=== PATIENT | male | born 1985 | race Caucasian/White ===

== ENCOUNTER 2019-05-10 01:14 | Emergency (ER) | payer SELFPAY ==
--- NOTE | 2019-05-10 01:48 | ER ---
Nurse's Notes [facility] Name: Meng Rdz Age: 33 yrs Sex: Male : 1985 Arrival Date: 05/10/2019 Time: 01:16 Bed 13 Private MD: Diagnosis: Other bursitis of elbow, right elbow Presentation: 05/10 01:25 Presenting complaint: Patient states: i got abrasion wound from my work 2 weeks ago. i rr5 did not mine it. Today I notice it is swollen,red, getting big and causing pain pain score 8/10. 01:25 Transition of care: patient was not received from another setting of care. Onset of rr5 symptoms was April 2019. Risk Assessment: Do you want to hurt yourself or someone else? Patient reports no desire to harm self or others. Initial Sepsis Screen: Does the patient meet any 2 criteria? No. Patient's initial sepsis screen is negative. Does the patient have a suspected source of infection? No. Patient's initial sepsis screen is negative. Care prior to arrival: None. 01:25 Method Of Arrival: Ambulatory rr5 01:25 Acuity: BENY 3 rr5 Historical: - Allergies: 01:20 No Known Allergies; rr5 - Home Meds: 01:20 None [Active]; rr5 - PMHx: 01:20 None; rr5 - PSHx: 01:20 None; rr5 - Immunization history:: Adult Immunizations up to date, Last tetanus immunization: unknown. - Social history:: Smoking status: Patient uses tobacco products, smokes one pack cigarettes per day. Patient uses alcohol, occasionally. Patient/guardian denies using street drugs. - Ebola Screening: : Patient negative for fever greater than or equal to 101.5 degrees Fahrenheit, and additional compatible Ebola Virus Disease symptoms Patient denies exposure to infectious person Patient denies travel to an Ebola-affected area in the 21 days before illness onset. Screenin:31 Abuse screen: Denies threats or abuse. Denies injuries from another. Nutritional rr5 screening: No deficits noted. Tuberculosis screening: No symptoms or risk factors identified. Fall Risk None identified. Total Valenzuela Fall Scale indicates No Risk (0-24 pts). Assessment: 01:20 General: Appears in no apparent distress. comfortable, Behavior is calm, cooperative, rr5 appropriate for age. Pain: Complains of pain in right elbow Pain does not radiate. Pain currently is 8 out of 10 on a pain scale. Quality of pain is described as aching, Pain began gradually, Is intermittent. Neuro: Level of Consciousness is awake, alert, obeys commands, Oriented to person, place, time, situation. Cardiovascular: Capillary refill < 3 seconds Patient's skin is warm and dry. Respiratory: Airway is patent Respiratory effort is even, unlabored, Respiratory pattern is regular, symmetrical. GI: No signs and/or symptoms were reported involving the gastrointestinal system. : No signs and/or symptoms were reported regarding the genitourinary system. EENT: No signs and/or symptoms were reported regarding the EENT system. Derm: Wound noted right elbow Wound is abrasions,swelling, redness and warm to touch. 01:20 Musculoskeletal: Swelling present in right elbow. rr5 02:02 Reassessment: Patient appears in no apparent distress at this time. Patient is alert, rr5 oriented x 3, equal unlabored respirations, skin warm/dry/pink. discharge instruction given and explained without complaints made. Vital Signs: 01:20 BP 142 / 103; Pulse 98; Resp 17; Temp 99.1; Pulse Ox 98% ; Weight 81.65 kg; Height 5 rr5 ft. 7 in. (170.18 cm); Pain 8/10; 02:02 BP 130 / 75; Pulse 90; Resp 16; Pulse Ox 98% ; rr5 01:20 Body Mass Index 28.19 (81.65 kg, 170.18 cm) rr5 ED Course: 01:16 Patient arrived in ED. ds1 01:20 Patient has correct armband on for positive identification. Call light in reach. Side rr5 rails up X2. 01:24 Armando Rendon PA is PHCP. jr8 01:24 Rambo Patricia MD is Attending Physician. jr8 01:27 Cornell Wren RN is Primary Nurse. rr5 01:30 Triage completed. rr5 01:31 Arm band placed on left wrist. rr5 01:55 Myles wrap to right elbow. rr5 01:55 No provider procedures requiring assistance completed. rr5 02:01 Patient did not have IV access during this emergency room visit. rr5 Administered Medications: 01:50 Drug: Bactrim (160 mg-800 mg (DS) 1 tablet Route: PO; rr5 02:03 Follow up: Response: Medication administered at discharge. rr5 Outcome: 01:47 Discharge ordered by . concepción 02:01 Discharged to home ambulatory. rr5 02:01 Condition: stable 02:01 Discharge instructions given to patient, Instructed on discharge instructions, follow up and referral plans. medication usage, Demonstrated understanding of instructions, follow-up care, medications, Prescriptions given X 2. 02:04 Patient left the ED. rr5 Signatures: Maribell Kelly ds1 Armando Rendon PA PA jr8 Cornell Wren, RN RN rr5
--- NOTE | 2019-05-10 01:49 | EDPHYS ---
Physician Documentation [facility] Name: Meng Rdz Age: 33 yrs Sex: Male : 1985 Arrival Date: 05/10/2019 Time: 01:16 Bed 13 Private MD: ED Physician Rambo Patricia HPI: 05/10 01:50 This 33 yrs old Male presents to ER via Ambulatory with complaints of Elbow jr8 Pain/ Swelling. 01:50 Onset: The symptoms/episode began/occurred today. Pt reports onset of redness and jr8 swelling to right elbow of the course of the last 4-5 hours. Reports the need to crawl on knees and elbows at work. . Historical: - Allergies: 01:20 No Known Allergies; rr5 - Home Meds: 01:20 None [Active]; rr5 - PMHx: 01:20 None; rr5 - PSHx: 01:20 None; rr5 - Immunization history:: Adult Immunizations up to date, Last tetanus immunization: unknown. - Social history:: Smoking status: Patient uses tobacco products, smokes one pack cigarettes per day. Patient uses alcohol, occasionally. Patient/guardian denies using street drugs. - Ebola Screening: : Patient negative for fever greater than or equal to 101.5 degrees Fahrenheit, and additional compatible Ebola Virus Disease symptoms Patient denies exposure to infectious person Patient denies travel to an Ebola-affected area in the 21 days before illness onset. ROS: 01:50 Constitutional: Negative for fever, chills, and weight loss, Eyes: Negative for injury, jr8 pain, redness, and discharge, ENT: Negative for injury, pain, and discharge, Neck: Negative for injury, pain, and swelling, Cardiovascular: Negative for chest pain, palpitations, and edema, Respiratory: Negative for shortness of breath, cough, wheezing, and pleuritic chest pain, Abdomen/GI: Negative for abdominal pain, nausea, vomiting, diarrhea, and constipation, Back: Negative for injury and pain, Neuro: Negative for headache, weakness, numbness, tingling, and seizure. 01:50 MS/extremity: Positive for erythema, pain, warmth, of the right elbow. Exam: 01:52 Constitutional: This is a well developed, well nourished patient who is awake, alert, jr8 and in no acute distress. Head/Face: Normocephalic, atraumatic. Eyes: Pupils equal round and reactive to light, extra-ocular motions intact. Lids and lashes normal. Conjunctiva and sclera are non-icteric and not injected. Cornea within normal limits. Periorbital areas with no swelling, redness, or edema. Neck: Trachea midline, no thyromegaly or masses palpated, and no cervical lymphadenopathy. Supple, full range of motion without nuchal rigidity, or vertebral point tenderness. No Meningismus. Chest/axilla: Normal chest wall appearance and motion. Nontender with no deformity. No lesions are appreciated. Cardiovascular: Regular rate and rhythm with a normal S1 and S2. No gallops, murmurs, or rubs. Normal PMI, no JVD. No pulse deficits. Respiratory: Lungs have equal breath sounds bilaterally, clear to auscultation and percussion. No rales, rhonchi or wheezes noted. No increased work of breathing, no retractions or nasal flaring. Abdomen/GI: Soft, non-tender, with normal bowel sounds. No distension or tympany. No guarding or rebound. No evidence of tenderness throughout. Back: No spinal tenderness. No costovertebral tenderness. Full range of motion. Neuro: Awake and alert, GCS 15, oriented to person, place, time, and situation. Cranial nerves II-XII grossly intact. Motor strength 5/5 in all extremities. Sensory grossly intact. Cerebellar exam normal. Normal gait. 01:52 Musculoskeletal/extremity: Joints: All joints appear normal with full range of motion. erythema and swelling over olecranon process of right elbow. Vital Signs: 01:20 BP 142 / 103; Pulse 98; Resp 17; Temp 99.1; Pulse Ox 98% ; Weight 81.65 kg; Height 5 rr5 ft. 7 in. (170.18 cm); Pain 8/10; 02:02 BP 130 / 75; Pulse 90; Resp 16; Pulse Ox 98% ; rr5 01:20 Body Mass Index 28.19 (81.65 kg, 170.18 cm) rr5 MDM: 01:24 Patient medically screened. jr8 01:45 Data reviewed: vital signs, nurses notes, and as a result, I will discharge patient. jr8 Data interpreted: Pulse oximetry: on room air is 98 %. Interpretation: normal. Counseling: I had a detailed discussion with the patient and/or guardian regarding: the historical points, exam findings, and any diagnostic results supporting the discharge/admit diagnosis. ED course: Discussed dx of bursitis and overlying redness, need for abx, need to rest elbow for a few days. 05/10 01:50 Order name: Myles Wrap; Complete Time: 02:00 jr8 Administered Medications: 01:50 Drug: Bactrim (160 mg-800 mg (DS) 1 tablet Route: PO; rr5 02:03 Follow up: Response: Medication administered at discharge. rr5 Disposition: 02:29 Co-signature as Attending Physician, Rambo Patricia MD. rn Disposition: 05/10/19 01:47 Discharged to Home. Impression: Other bursitis of elbow, right elbow. - Condition is Stable. - Discharge Instructions: Bursitis, Repetitive Strain Injuries. - Prescriptions for Naprosyn 500 mg Oral Tablet - take 1 tablet by ORAL route 2 times per day take with food; 30 tablet. Bactrim DS 800- 160 mg Oral Tablet - take 1 tablet by ORAL route every 12 hours for 7 days; 14 tablet. - Work release form, Medication Reconciliation Form, Thank You Letter, Prescription Opioid Use form. - Follow up: Private Physician; When: As needed; Reason: Recheck today's complaints, Continuance of care. - Problem is new. - Symptoms are unchanged. Signatures: Rambo Patricia MD MD rn Roszak, Josh, PA PA jr8 Cornell Wren RN RN rr5 Corrections: (The following items were deleted from the chart) 02:04 01:47 05/10/2019 01:47 Discharged to Home. Impression: Other bursitis of elbow, right rr5 elbow. Condition is Stable. Forms are Medication Reconciliation Form, Thank You Letter, Antibiotic Education, Prescription Opioid Use. Follow up: Private Physician; When: As needed; Reason: Recheck today's complaints, Continuance of care. Problem is new. Symptoms are unchanged. jr8
[2019-05-10] MEDS ORDERED: SMZ./TMP. 800/160 MG TABLET ONE (01:54)
[2019-05-10 02:43] VITALS: TEMP 99.1; O2SAT 98
[2019-05-10 02:44] VITALS: BP 130/75
== END 2019-05-10 02:04 | disposition home or self-care (01) ==
LOC: ER 01:14
DX: M70.31 Other bursitis of elbow, right elbow (principal); F17.210 Nicotine dependence, cigarettes, uncomplicated
CPT/HCPCS: 99283

== ENCOUNTER 2019-07-28 01:47 | Emergency (ER) | payer SELFPAY ==
[2019-07-28] MEDS ORDERED: HYDROCODONE/APAP 7.5/325 MG TAB ONE (02:02)
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
--- NOTE | 2019-07-28 08:21 | RAD REPORT ---
EXAM DESCRIPTION: RAD - Ankle Left 3 View - 07/28/2019 2:11 am CLINICAL HISTORY: PAIN COMPARISON: No comparisons FINDINGS: Oblique fracture involves the distal fibula with moderate adjacent soft tissue swelling. N o dislocation is seen. Tiny posterior calcaneal spur.
[2019-07-28 10:21] VITALS: TEMP 98
[2019-07-28 10:23] VITALS: BP 123/92; O2SAT 98
== END 2019-07-28 03:34 | disposition home or self-care (01) ==
LOC: ER 01:47
PROC: 2W3RX1Z Immobilization of Left Lower Leg using Splint (ICD-10-PCS; principal; 2019-07-28)
DX: S82.435A Nondisplaced oblique fracture of shaft of left fibula, initial encounter for closed fracture (principal); W20.8XXA Other cause of strike by thrown, projected or falling object, initial encounter; Y93.9 Activity, unspecified; Y92.9 Unspecified place or not applicable; F17.210 Nicotine dependence, cigarettes, uncomplicated
CPT/HCPCS: 99284

== ENCOUNTER 2019-11-25 03:26 | Emergency (ER) | payer SELFPAY ==
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
[2019-11-25 04:24] VITALS: BP 130/89; TEMP 98; O2SAT 100
== END 2019-11-25 04:18 | disposition home or self-care (01) ==
LOC: ER 03:26
DX: L03.818 Cellulitis of other sites (principal); L03.124 Acute lymphangitis of left upper limb; L03.123 Acute lymphangitis of right upper limb
CPT/HCPCS: 99283

== ENCOUNTER 2022-06-01 00:33 | Emergency (ER) | payer SELFPAY ==
[2022-06-01] MEDS ORDERED: DIAZEPAM 5 MG TABLET ONE (01:29)
[2022-06-01] MEDS ORDERED: HYDROCODONE/APAP 5/325 MG TAB ONE (01:30)
--- NOTE | 2022-06-01 03:42 | ER ---
Nurse's Notes [facility] Name: Meng Rdz Age: 36 yrs Sex: Male : 1985 Arrival Date: 06/01/2022 Time: 00:37 Bed 3 Private MD: Diagnosis: Pain in right shoulder;Muscle spasm Presentation: 06/01 00:58 Chief complaint: Patient states: c/o right shoulder cramping since yesterday. bb Coronavirus screen: At this time, the client does not indicate any symptoms associated with coronavirus-19. Ebola Screen: No symptoms or risks identified at this time. Initial Sepsis Screen: Does the patient meet any 2 criteria? No. Patient's initial sepsis screen is negative. Does the patient have a suspected source of infection? No. Patient's initial sepsis screen is negative. Risk Assessment: Do you want to hurt yourself or someone else? Patient reports no desire to harm self or others. Onset of symptoms was May 31, 2022. 00:58 Method Of Arrival: Ambulatory bb 00:58 Acuity: BENY 5 bb Historical: - Allergies: 00:59 No Known Allergies; bb Screenin:10 Abuse screen: Denies threats or abuse. Nutritional screening: No deficits noted. jb4 Tuberculosis screening: No symptoms or risk factors identified. Fall Risk None identified. Assessment: 01:10 General: Appears in no apparent distress. uncomfortable, Behavior is calm, cooperative, jb4 appropriate for age. Pain: Complains of pain in Right shoulder Pain radiates to right hand Pain currently is 6 out of 10 on a pain scale. at worst was 10 out of 10 on a pain scale. Quality of pain is described as tingling, numb. Neuro: Level of Consciousness is awake, alert, obeys commands, Oriented to person, place, time, situation. Cardiovascular: Patient's skin is warm and dry. Respiratory: Airway is patent Respiratory effort is even, unlabored, Respiratory pattern is regular, symmetrical. GI: : No signs and/or symptoms were reported regarding the genitourinary system. EENT: No signs and/or symptoms were reported regarding the EENT system. Derm: Skin is intact, Skin is pink, warm \T\ dry. Musculoskeletal: Circulation, motion, and sensation intact. Range of motion: intact in all extremities. 02:43 Reassessment: Pt is resting in bed with eyes closed, respirations are even and jb4 unlabored, no s/s of pain or distress noted. 04:00 Reassessment: Patient appears in no apparent distress at this time. Patient and/or jb4 family updated on plan of care and expected duration. Pain level reassessed. Patient is alert, oriented x 3, equal unlabored respirations, skin warm/dry/pink. Vital Signs: 01:22 BP 155 / 109; Pulse 57; Resp 18 S; Temp 97.9(O); Pulse Ox 99% on R/A; Weight 81.65 kg bb (R); Height 5 ft. 7 in. (170.18 cm) (R); Pain 10/10; 02:43 BP 119 / 86; Pulse 72; Resp 16; Pulse Ox 98% on R/A; jb4 03:45 BP 116 / 73; Pulse 65; Resp 16; Pulse Ox 99% on R/A; jb4 01:22 Body Mass Index 28.19 (81.65 kg, 170.18 cm) bb ED Course: 00:37 Patient arrived in ED. bp1 00:37 Terence Felix DO is Attending Physician. ms3 00:59 Triage completed. bb 00:59 Arm band placed on Patient placed in waiting room, Patient notified of wait time. bb 01:10 Patient has correct armband on for positive identification. Bed in low position. Call jb4 light in reach. Side rails up X 1. Client placed on continuous cardiac and pulse oximetry monitoring. NIBP monitoring applied. 01:16 Arthur Caldwell, BIANKA is Primary Nurse. jb4 02:32 Shoulder Right (2 View) XRAY In Process Unspecified. EDMS 03:40 Rober Agarwal MD is Referral Physician. ms3 04:00 No provider procedures requiring assistance completed. Patient did not have IV access jb4 during this emergency room visit. Administered Medications: 01:35 Drug: HYDROcodone-acetaminophen 5 mg-325 mg 1 tabs Route: PO; jb4 02:00 Follow up: Response: No adverse reaction; Marked relief of symptoms jb4 01:35 Drug: Valium (diazepam) 5 mg Route: PO; jb4 02:00 Follow up: Response: No adverse reaction; Marked relief of symptoms jb4 Medication: 03:45 VIS not applicable for this client. jb4 Outcome: 03:42 Discharge ordered by . ms3 04:00 Discharged to home ambulatory. jb4 04:00 Condition: stable 04:00 Discharge instructions given to patient, family, Instructed on discharge instructions, follow up and referral plans. medication usage, Demonstrated understanding of instructions, follow-up care, medications, Prescriptions given X 2. 04:10 Patient left the ED. bb Signatures: Dispatcher [employer] EDMS Hemalatha Koch RN RN bb Arthur Caldwell RN RN jb4 Terence Felix DO DO ms3 [facility]
--- NOTE | 2022-06-01 03:42 | EDPHYS ---
Physician Documentation [facility] Name: Meng Rdz Age: 36 yrs Sex: Male : 1985 Arrival Date: 06/01/2022 Time: 00:37 Bed 3 Private MD: ED Physician Terence Felix HPI: 06/01 03:43 This 36 yrs old Male presents to ER via Ambulatory with complaints of Shoulder Pain, ms3 Back Pain. 03:43 36-year-old male with no past medical history presents for right shoulder pain/cramping ms3 that began yesterday. Patient states pain is 10/10 cramping located in the right posterior shoulder. Patient states he took a hot shower that helped while he was in the shower. Patient denies inciting factors. Patient denies fevers, chills, nausea, vomiting, chest pain. Historical: - Allergies: 00:59 No Known Allergies; bb ROS: 03:43 Constitutional: Negative for fever, and chills. Neck: Negative for injury, pain, and ms3 swelling, Cardiovascular: Negative for chest pain, and palpitations. Respiratory: Negative for shortness of breath, cough, wheezing, and pleuritic chest pain, Abdomen/GI: Negative for abdominal pain, nausea, vomiting, diarrhea, and constipation. 03:43 MS/extremity: Positive for right shoulder pain. 03:43 All other systems are negative. Exam: 03:43 Constitutional: This is a well developed, well nourished patient who is awake, alert, ms3 and in no acute distress. Head/Face: Normocephalic, atraumatic. Neck: Trachea midline, no cervical lymphadenopathy. Supple, full range of motion without nuchal rigidity, or vertebral point tenderness. No Meningismus. Chest/axilla: Normal chest wall appearance and motion. Nontender with no deformity. Cardiovascular: Regular rate and rhythm with a normal S1 and S2. No gallops, murmurs, or rubs. Normal PMI, no JVD. No pulse deficits. Respiratory: Lungs have equal breath sounds bilaterally, clear to auscultation and percussion. No rales, rhonchi or wheezes noted. No increased work of breathing, no retractions or nasal flaring. Abdomen/GI: Soft, non-tender, with normal bowel sounds. No distension or tympany. No guarding or rebound. No evidence of tenderness throughout. Skin: Warm, dry with normal turgor. Normal color with no rashes, no lesions, and no evidence of cellulitis. 03:43 Musculoskeletal/extremity: Extremities: noted in the right shoulder: pain, tenderness. Vital Signs: 01:22 BP 155 / 109; Pulse 57; Resp 18 S; Temp 97.9(O); Pulse Ox 99% on R/A; Weight 81.65 kg bb (R); Height 5 ft. 7 in. (170.18 cm) (R); Pain 10/10; 02:43 BP 119 / 86; Pulse 72; Resp 16; Pulse Ox 98% on R/A; jb4 03:45 BP 116 / 73; Pulse 65; Resp 16; Pulse Ox 99% on R/A; jb4 01:22 Body Mass Index 28.19 (81.65 kg, 170.18 cm) bb MDM: 00:58 Patient medically screened. ms3 04:03 Data reviewed: vital signs, nurses notes, and as a result, I will discharge patient. ms3 Counseling: I had a detailed discussion with the patient and/or guardian regarding: the historical points, exam findings, and any diagnostic results supporting the discharge/admit diagnosis, radiology results, the need for outpatient follow up, to return to the emergency department if symptoms worsen or persist or if there are any questions or concerns that arise at home. ED course: Patient's pain improved after [place] and Valium. Patient follow-up Dr. Agarwal in 2 to 3 days. Patient understands agrees with plan. All questions were answered. Return precautions discussed include worsening symptoms, or any other concerns.. 06/01 02:12 Order name: Shoulder Right (2 View) XRAY jb4 Administered Medications: 01:35 Drug: HYDROcodone-acetaminophen 5 mg-325 mg 1 tabs Route: PO; jb4 02:00 Follow up: Response: No adverse reaction; Marked relief of symptoms jb4 01:35 Drug: Valium (diazepam) 5 mg Route: PO; jb4 02:00 Follow up: Response: No adverse reaction; Marked relief of symptoms jb4 Disposition Summary: 06/01/22 03:42 Discharge Ordered Location: Home ms3 Condition: Stable ms3 Diagnosis - Pain in right shoulder ms3 - Muscle spasm ms3 Followup: ms3 - With: Rober Agarwal MD - When: 2 - 3 days - Reason: Recheck today's complaints Discharge Instructions: - Discharge Summary Sheet ms3 - Shoulder Pain ms3 - Shoulder Pain, [id number] ms3 Forms: - Medication Reconciliation Form ms3 - Thank You Letter ms3 - Antibiotic Education ms3 - Prescription Opioid Use ms3 Prescriptions: - Ibuprofen 600 mg Oral Tablet - take 1 tablet by ORAL route every 6 hours As needed take with food; 30 tablet; ms3 Refills: 0, Product Selection Permitted - Cyclobenzaprine 10 mg Oral Tablet - take 1 tablet by ORAL route every 8 hours As needed; 30 tablet; Refills: 0, ms3 Product Selection Permitted Signatures: Dispatcher [employer] Hemalatha Osborne RN RN Arthur Kennedy RN RN jb4 Terence Felix, DO ms3
[2022-06-01 04:24] VITALS: BP 119/86; O2SAT 98
[2022-06-01 04:25] VITALS: TEMP 97.9
--- NOTE | 2022-06-02 10:51 | RAD REPORT ---
EXAM DESCRIPTION: RAD - Shoulder Right 2 View - 06/01/2022 2:30 am CLINICAL HISTORY: 36 years, Male, pain COMPARISON: None. FINDINGS: 2 X-ray views of the right shoulder (internal rotation and external rotation views) were p erformed. There is no evidence for fracture or dislocation. No gross articular or soft tissue abnormality is identified. There are no gross intraosseous lesions. The AC joint demonstrate minimal spur formatio ns. There is no evidence for separation. IMPRESSION: No acute osseous abnormality. Electronically signed by: Owen Bradford MD 06/01/2022 3:03 AM CDT Due to temporary technical issues with the PACS/Fluency reporting system, reports are being signed by the in house radiologists without review as a courtesy to insure prompt reporting. The interpreting radiologist is fully responsible for the content of the report.
== END 2022-06-01 04:10 | disposition home or self-care (01) ==
LOC: ER 00:33
DX: M25.511 Pain in right shoulder (principal); M62.838 Other muscle spasm
CPT/HCPCS: 99283

== ENCOUNTER 2022-12-31 18:22 | Emergency (ER) | payer SELFPAY ==
[2022-12-31] MEDS ORDERED: HYDROCODONE/APAP 7.5/325 MG TAB ONE (19:32)
[2022-12-31] MEDS ORDERED: LIDOCAINE 1% MPF 5 ML VIAL ONE (19:33)
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
[2022-12-31] MEDS ORDERED: BUPIVACAINE 0.5% PF 10 ML VIAL ONE (20:15)
[2022-12-31] MEDS ORDERED: LIDOCAINE 1% 20 ML MDV ONE (20:24)
[2022-12-31] MEDS ORDERED: LIDOCAINE 2% INJ, 20 mL 0 ML ONE (20:24)
[2022-12-31] MEDS ORDERED: LIDOCAINE HCL/EPINEPHRINE 20 ML MDV ONE (20:34)
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
[2022-12-31 22:47] VITALS: BP 128/91; TEMP 98.5; O2SAT 99
== END 2022-12-31 21:54 | disposition home or self-care (01) ==
LOC: ER 18:22
DX: S61.412A Laceration without foreign body of left hand, initial encounter (principal); S61.512A Laceration without foreign body of left wrist, initial encounter; S67.42XA Crushing injury of left wrist and hand, initial encounter
CPT/HCPCS: J2001

== ENCOUNTER 2023-05-01 08:44 | Emergency (ER) | payer SELFPAY ==
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
--- NOTE | 2023-05-01 09:53 | RAD REPORT ---
EXAM DESCRIPTION: CT - Hand Right Wo Con - 05/01/2023 9:10 am CLINICAL HISTORY: abscess, swelling COMPARISON: No comparisons TECHNIQUE: Thin cut axial CT imaging of the right hand was performed without IV contrast. Multiplana r reformats were generated and reviewed. All CT scans are performed using dose optimization technique as appropriate and may include automated exposure control or mA/KV adjustment according to patient size. FINDINGS: No acute fracture or dislocation. Joint alignment is maintained. No significant degenerative changes or erosions. Soft tissue swelling with a small laceration along the dorsal aspect of the third digit head of the p roximal phalanx. Soft tissue swelling extends to the level of the extensor tendons, without evidence of a discrete collection, within limits of noncontrast evaluation. Joint space does not appear to be significantly distended. No other joint effusions. Major tendinous and neurovascular structures are unremarkable. IMPRESSION: Soft tissue swelling and small laceration with superficial gas along the dorsal aspect o f the third digit head of the proximal phalanx. Soft tissue swelling extends to the level of the exte nsor tendons, without evidence of a discrete collection within limits of noncontrast evaluation. No underlying erosion or other suspicious osseous abnormality.
--- NOTE | 2023-05-01 09:56 | RAD REPORT ---
EXAM DESCRIPTION: RAD - Hand Right 3 View - 05/01/2023 9:49 am CLINICAL HISTORY: PAIN COMPARISON: No comparisons TECHNIQUE: Right hand, 3 views. FINDINGS: No fracture is identified. There is no dislocation or periosteal reaction noted. No foreign body or other soft tissue abnormalit y. IMPRESSION: Negative right hand examination.
[2023-05-01] MEDS ORDERED: CLINDAMYCIN 600MG/D5W 50 ML IV ONE (10:33)
[2023-05-01 10:34] LABS: Protime INR 0.99
[2023-05-01 10:47] LABS: Absolute Lymphocytes (CBC) 2.1 K/uL (0.7-4.9); Hematocrit 45.8 % (39.6-49.0); Lymphocytes % 21.2 % (15.3-44.8); MCV 92.7 fL (80-100); MPV 9.1 fL (7.6-11.3); Platelets 242 thou/uL (152-406); RBC Red Blood Cell Count 4.94 M/uL (4.33-5.43)
[2023-05-01 10:50] LABS: Albumin 3.8 g/dL (3.4-5.0); Bilirubin Total 0.2 mg/dL (0.2-1.0); Potassium 4.1 mEq/L (3.5-5.1); Protein, Total 8.1 g/dL (6.4-8.2)
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
[2023-05-01] MEDS ORDERED: MORPHINE 4 MG/ML SYR ONE (11:02)
[2023-05-01] MEDS ORDERED: ONDANSETRON 4 MG/2 ML VIAL ONE (11:03)
[2023-05-01] MEDS ORDERED: KETOROLAC 30 MG/ML INJ ONE (12:58)
[2023-05-01 14:35] VITALS: BP 141/96; TEMP 98.2; O2SAT 99
--- NOTE | 2023-05-04 19:13 | EKG ---
Test Date: 2023-05-01 Test Time: 10:17:08 Chemistry Quality Control Technician: MEASUREMENT RESULTS: Intervals: Rate: 89 PA: 158 QRSD: 84 QT: 356 QTc: 433 [place]: P: 36 PA: 158 QRS: 79 T: 52 INTERPRETIVE STATEMENTS: Normal sinus rhythm Normal ECG Compared to ECG 07/05/2014 12:50:54 No significant changes Electronically Signed On 05-04-23 19:08:03 CDT by Nuno Quinn
== END 2023-05-01 14:05 | disposition short-term general hospital (02) ==
LOC: ER 08:44
DX: M65.841 Other synovitis and tenosynovitis, right hand (principal)
CPT/HCPCS: 36415; 73200; 80053; 83605; 85025; 85610; 85730; 87040; 93005; 96365; 96375; 99285; J2405

== ENCOUNTER 2024-01-19 20:41 | Emergency (ER) | payer SELFPAY ==
--- NOTE | 2024-01-19 20:59 | ER ---
Nurse's Notes [facility] Name: Meng Rdz Age: 38 yrs Sex: Male : 1985 Arrival Date: 01/19/2024 Time: 20:41 Bed IW2 Private MD: Diagnosis: Encounter for issue of other medical certificate-work note Presentation: 01/18 20:54 Chief complaint: Patient states: "I had diarrhea today and missed work. I need a work mb9 note.". Coronavirus screen: Vaccine status: Patient reports being unvaccinated. Ebola Screen: No symptoms or risks identified at this time. Initial Sepsis Screen: Does the patient meet any 2 criteria? No. Patient's initial sepsis screen is negative. Does the patient have a suspected source of infection? No. Patient's initial sepsis screen is negative. Risk Assessment: Do you want to hurt yourself or someone else? Patient reports no desire to harm self or others. Onset of symptoms was January 19, 2024. 20:54 Method Of Arrival: Ambulatory mb9 20:54 Acuity: BENY 5 mb9 Triage Assessment: 20:55 General: Appears in no apparent distress. Behavior is calm, cooperative. Pain: Denies mb9 pain. EENT: No signs and/or symptoms were reported regarding the EENT system. Neuro: Level of Consciousness is awake, alert, obeys commands, Oriented to person, place, time, situation, Appropriate for age. Cardiovascular: Patient's skin is warm and dry. Respiratory: Airway is patent Respiratory effort is even, unlabored, Respiratory pattern is regular, symmetrical. GI: Reports diarrhea. : No signs and/or symptoms were reported regarding the genitourinary system. Derm: Skin is pink, warm \\T\\ dry. Musculoskeletal: Range of motion: intact in all extremities. Historical: - Allergies: 20:55 No Known Allergies; mb9 - Home Meds: 20:55 None [Active]; mb9 - PMHx: 20:55 None; mb9 - PSHx: 20:55 finger; mb9 - Immunization history:: Adult Immunizations up to date. - Infectious Disease History:: Denies. - Social history:: Smoking status: Patient reports the use of cigarette tobacco products, smokes one-half pack cigarettes per day. Screenin:56 [facility] ED Fall Risk Assessment (Adult) History of falling in the last 3 months, mb9 including since admission No falls in past 3 months (0 pts) Confusion or Disorientation No (0 pts) Intoxicated or Sedated No (0 pts) Impaired Gait No (0 pts) Mobility Assist Device Used No (0 pt) Altered Elimination No (0 pt) Score/Fall Risk Level 0 - 2 = Low Risk Oriented to surroundings, Maintained a safe environment, Educated pt \\T\\ family on fall prevention, incl call for assistance when getting out of bed. Abuse screen: Denies threats or abuse. Nutritional screening: No deficits noted. Tuberculosis screening: No symptoms or risk factors identified. Assessment: 20:56 Reassessment: Patient appears in no apparent distress at this time. No changes from mb9 previously documented assessment. Vital Signs: 20:54 BP 146 / 86; Pulse 74; Resp 18; Temp 98.4; Pulse Ox 100% on R/A; Weight 86.18 kg; mb9 Height 5 ft. 7 in. ; Pain 0/10; 20:54 Body Mass Index 29.76 (86.18 kg, 170.18 cm) mb9 20:54 Pain Scale: Adult mb9 ED Course: 20:42 Patient arrived in ED. mr 20:43 Yvonne Field FNP-C [facility]. kb 20:43 Silvano Landa MD is Attending Physician. kb 20:43 Nemesio Mitchell MD is Attending Physician. kb 20:55 Triage completed. mb9 20:55 Arm band placed on. mb9 20:56 Patient has correct armband on for positive identification. mb9 20:56 No provider procedures requiring assistance completed. Patient did not have IV access mb9 during this emergency room visit. 21:00 Sharmaine Pop, RN is Primary Nurse. mb9 Administered Medications: No medications were administered Medication: 20:56 VIS not applicable for this client. mb9 Outcome: 20:59 Discharge ordered by . kb 21:00 Discharged to home ambulatory, mb9 21:00 Condition: stable 21:00 Discharge instructions given to patient, Instructed on discharge instructions, follow up and referral plans. Demonstrated understanding of instructions, follow-up care, 21:00 Patient left the ED. mb9 Signatures: Yvonne Field FNP-C [employer]-Sharmaine Joseph, Reg Reg mr Sharmaine Pop, RN RN mb9
--- NOTE | 2024-01-19 20:59 | EDPHYS ---
Physician Documentation [facility] Name: Meng dRz Age: 38 yrs Sex: Male : 1985 Arrival Date: 01/19/2024 Time: 20:41 Bed IW2 Private MD: ED Physician Nemesio Mitchell HPI: 01/19 00:32 This 38 yrs old Male presents to ER via Ambulatory with complaints of Diarrhea, Work kb note. 00:32 Pt is a 38 year old male who presents for a work note. States he woke up with diarrhea kb and abd cramping this morning so he didn't go to work. States symptoms resolved by this afternoon, but he has to have a dr's note to return to work tomorrow. Pt tolerating po intake. Historical: - Allergies: 01/18 20:55 No Known Allergies; mb9 - Home Meds: 20:55 None [Active]; mb9 - PMHx: 20:55 None; mb9 - PSHx: 20:55 finger; mb9 - Immunization history:: Adult Immunizations up to date. - Infectious Disease History:: Denies. - Social history:: Smoking status: Patient reports the use of cigarette tobacco products, smokes one-half pack cigarettes per day. ROS: 01/19 00:32 Constitutional: As per HPI kb Exam: 00:32 Constitutional: This is a well developed, well nourished patient who is awake, alert, kb and in no acute distress. Head/Face: Normocephalic, atraumatic. ENT: Moist Mucous membranes Cardiovascular: Regular rate Respiratory: Respirations even and unlabored. No increased work of breathing. Talking in full sentences Abdomen/GI: Soft, non-tender. No distention Skin: Warm, dry with normal turgor. Normal color. MS/ Extremity: Pulses equal, no cyanosis. Neurovascular intact. Full, normal range of motion. Neuro: Awake and alert, GCS 15, oriented to person, place, time, and situation. Moves all extremities. Normal gait. Vital Signs: 01/18 20:54 BP 146 / 86; Pulse 74; Resp 18; Temp 98.4; Pulse Ox 100% on R/A; Weight 86.18 kg; mb9 Height 5 ft. 7 in. ; Pain 0/10; 20:54 Body Mass Index 29.76 (86.18 kg, 170.18 cm) mb9 20:54 Pain Scale: Adult mb9 MDM: 20:43 Patient medically screened. kb 01/19 00:32 Differential diagnosis: Nonspecific abd pain, viral gastroenteritis. Data reviewed: kb vital signs, nurses notes. Test considered but Not performed: Labs: cbc, cmp considered but pt tolerating po intake, has no abd pain, n/v/d, fever. States his symptoms have all resolved. Counseling: I had a detailed discussion with the patient and/or guardian regarding the historical points, exam findings, and any diagnostic results supporting the discharge/admit diagnosis, the need for outpatient follow up, a family practitioner, to return to the emergency department if symptoms worsen or persist or if there are any questions or concerns that arise at home. Administered Medications: No medications were administered Disposition Summary: 01/19/24 20:59 Discharge Ordered Notes: Location: Home kb Condition: Stable kb Diagnosis - Encounter for issue of other medical certificate - work note kb Followup: kb - With: Emergency Department - When: As needed - Reason: Worsening of condition Followup: kb - With: Private Physician - When: 2 - 3 days - Reason: Recheck today's complaints, Continuance of care, Re-evaluation by your physician Discharge Instructions: - Diarrhea, Adult, [id number] kb - Discharge Summary Sheet mb9 Forms: - Medication Reconciliation Form kb - Antibiotic Education kb - Prescription Opioid Use kb - Patient Portal Instructions kb - Leadership Thank You Letter kb - Work release form mb9 Addendum: 01/22/2024 02:19 Co-signature as Attending Physician, Nemesio Mitchell MD I agree with the assessment s p4 and plan of care. I reviewed the patient's care provided by the Advanced Practice Provider and agree with the diagnosis and treatment plan. Signatures: Yvonne Field, Sharmaine Corcoran RN RN mb9 Nemesio Mitchell MD MD sp4
[2024-01-19 21:48] VITALS: BP 146/86; TEMP 98.4; O2SAT 100
== END 2024-01-19 21:00 | disposition home or self-care (01) ==
LOC: ER 20:41
DX: Z02.79 Encounter for issue of other medical certificate (principal)
CPT/HCPCS: 99282